=== PATIENT | female | born 1965 | race Caucasian/White ===

== ENCOUNTER 2018-11-03 16:35 | Emergency (ER) | payer OTHER ==
--- NOTE | 2018-11-03 17:21 | EDM.PDOC ---
<Alejandro Thurston - Last Filed: 11/03/18 18:21> ED HPI GENERAL MEDICAL PROBLEM - General Chief Complaint: Gastrointestinal Problem Stated Complaint: CHEST PRESSURE,BURPING,LIGHTHEADED Time Seen by Provider: 11/03/18 17:05 Source of Information: Reports: Patient, Family History Limitations: Reports: No Limitations - History of Present Illness INITIAL COMMENTS - FREE TEXT/NARRATIVE: 53-year-old female with an epigastric and substernal pressure sensation for the past 18-20 hours. She noticed it last night prior to going to bed, several times in the night because difficulty sleeping because of the pressure. It feels more intense if she sits up and leans forward, or take a deep breath. There is no radiation of pain to her back or shoulders. She also feels like she has to "burping a lot". She went for a 2 mile walk today and she felt much better but later the pressure built up to where it made her anxious and then she developed some numbness and tingling in her arms so wanted to be checked. She went into the clinic and they sent her to the emergency room. Now she is currently nauseous but has had no vomiting, no abdominal distention, diarrhea or constipation. She's had 2 C-sections in the past. Denies any dyspnea, cough, cold symptoms or recent illness. Onset: Sudden (Symptoms started rather suddenly last evening) Duration: Hour(s): (About 20 hours) Location: Reports: Chest, Abdomen (Substernal epigastric) Quality: Reports: Pressure Improves with: Reports: Other (Activity seems to make it feel better especially if she is upright and walking) Worsens with: Reports: Other (Sitting position and leaning forward, also a deep breath she feels more pressure) Associated Symptoms: Reports: Chest Pain, Diaphoresis, Malaise. Denies: Cough, Fever/Chills, Shortness of Breath - Related Data Allergies Allergy/AdvReac Type Severity Reaction Status Date / Time amoxicillin Allergy Anxiety Verified 11/03/18 16:53 sulfamethoxazole Allergy Rash Verified 11/03/18 16:53 [From Bactrim] trimethoprim [From Bactrim] Allergy Rash Verified 11/03/18 16:53 Home Meds: Home Meds NK [No Known Home Meds] 11/03/18 [History] Past Medical History [employer] History: Reports: Endocrine/Metabolic History: Reports: Obesity/BMI 30+ Dermatologic History: Reports: Eczema - Infectious Disease History Infectious Disease History: Reports: Chicken Pox - Past Surgical History Head Surgeries/Procedures: Reports: None Endocrine Surgical History: Reports: None Dermatological Surgical History: Reports: None Social & Family History - Tobacco Use Smoking Status *Q: Never Smoker Second Hand Smoke Exposure: No - Caffeine Use Caffeine Use: Reports: Coffee - Recreational Drug Use Recreational Drug Use: No ED ROS GENERAL - Review of Systems Review Of Systems: See Below Constitutional: Reports: Malaise. Denies: Fever, Chills HEENT: Reports: No Symptoms Respiratory: Denies: Shortness of Breath Cardiovascular: Reports: Chest Pain (Substernal pressure) GI/Abdominal: Reports: Abdominal Pain (Epigastric pressure), Nausea : Reports: No Symptoms Musculoskeletal: Reports: No Symptoms Skin: Reports: No Symptoms Neurological: Reports: No Symptoms Psychiatric: Reports: No Symptoms ED EXAM, GENERAL - Physical Exam Exam: See Below Exam Limited By: No Limitations General Appearance: Alert, No Apparent Distress Eye Exam: Bilateral Eye: Normal Inspection (No jaundice) Head: Atraumatic Neck: Non-Tender Respiratory/Chest: No Respiratory Distress, Lungs Clear Cardiovascular: Regular Rate, Rhythm. No: Extra Beats GI/Abdominal: Normal Bowel Sounds, Soft, Tender (Slight discomfort and tenderness to palpation across the upper abdomen but no focal pain, guarding or rebound tenderness) Extremities: Normal Inspection. No: Pedal Edema Neurological: Alert, Oriented Psychiatric: Normal Affect, Normal Mood Skin Exam: Warm, Dry EKG INTERPRETATION Rhythm: NSR Course - Vital Signs Last Recorded V/S: Last Vital Signs Temp 36.4 C 11/03/18 16:57 Pulse 91 11/03/18 17:49 Resp 14 11/03/18 17:49 BP 124/87 11/03/18 17:49 Pulse Ox 96 11/03/18 17:49 - Orders/Labs/Meds Orders: Active Orders 24 hr Category Date Time Status EKG Documentation Completion [RC] ASDIRECTED Care 11/03/18 17:15 Active Famotidine [Pepcid] Med 11/03/18 19:47 Once 40 mg PO ONETIME ONE EKG 12 Lead [EK] Routine Ther 11/03/18 17:14 Ordered Labs: Laboratory Tests 0211/03/18 11/03/18 Range/Units 17:14 17:14 17:14 WBC 6.9 (4.5-11.0) K/uL RBC 4.95 (3.30-5.50) M/uL Hgb 14.9 (12.0-15.0) g/dL Hct 45.0 (36.0-48.0) % MCV 91 (80-98) fL MCH 30 (27-31) pg MCHC 33 (32-36) % Plt Count 297 (150-400) K/uL Neut % (Auto) 65 (36-66) % Lymph % (Auto) 27 (24-44) % [place] % (Auto) 7 H (2-6) % Eos % (Auto) 0 L (2-4) % Baso % (Auto) 0 (0-1) % Sodium 141 (140-148) mmol/L Potassium 3.5 L (3.6-5.2) mmol/L Chloride 103 (100-108) mmol/L Carbon Dioxide 22 (21-32) mmol/L Anion Gap 19.5 H (5.0-14.0) mmol/L BUN 18 (7-18) mg/dL Creatinine 0.9 (0.6-1.0) mg/dL Est Cr Clr Drug Dosing 60.49 mL/min Estimated GFR (MDRD) > 60 (>60) Glucose 101 (74-106) mg/dL Calcium 9.4 (8.5-10.1) mg/dL Total Bilirubin 0.5 (0.2-1.0) mg/dL AST 14 L (15-37) U/L ALT 22 (12-78) U/L Alkaline Phosphatase 62 (46-116) U/L Troponin I < 0.017 (0.000-0.056) ng/mL Total Protein 7.9 (6.4-8.2) g/dL Albumin 4.2 (3.4-5.0) g/dL Globulin 3.7 H (2.3-3.5) g/dL Albumin/Globulin Ratio 1.1 L (1.2-2.2) Lipase 125 (73-393) U/L - Re-Assessments/Exams Free Text/Narrative Re-Assessment/Exam: 11/03/18 17:22 In EKG was done which showed no ST segment changes, it appears normal. A CBC, CMP, lipase and troponin were obtained and the patient will be sent back for a two-view chest x-ray. 11/03/18 18:22 Labs were generally normal, reassuring, troponin 0 and lipase normal. Reexamination revealed persistent epigastric pain and the patient, but that she feels "bloated". Discussed more evaluation with a CT scan versus clear liquids for 1-2 days and Prilosec, the family elected to do a CT which was ordered without contrast abdomen and pelvis. Care turned over to Dr. Mckenna pending results. Departure - Departure Disposition: Home, Self-Care 01 Clinical Impression: Epigastric pain - Discharge Information Instructions: Abdominal Pain, Adult Referrals: PCP,None [Primary Care Provider] - Forms: ED Department Discharge Additional Instructions: Take famotidine as directed. F/U with your provider within the week. Use acetaminophen as needed for pain relief. May use Maalox for added relief as needed. Avoid caffeine, carbonated beverages or NSAID's like ibuprofen, Aleve, and aspirin. Return here if much worse. - My Orders Last 24 Hours: My Active Orders 11/03/18 19:47 Famotidine [Pepcid] 40 mg PO ONETIME ONE - Assessment/Plan Last 24 Hours: My Active Orders 11/03/18 19:47 Famotidine [Pepcid] 40 mg PO ONETIME ONE <Juan Mckenna G - Last Filed: 11/03/18 19:49> Course - Radiology Interpretation Free Text/Narrative:: Neg abd/pelvis CT scan. CT Results Date: 11/03/18 Departure - Departure Time of Disposition: 20:00 Condition: Good - Discharge Information *PRESCRIPTION DRUG MONITORING PROGRAM REVIEWED*: No *COPY OF PRESCRIPTION DRUG MONITORING REPORT IN PATIENT NANCY: No - My Orders Last 24 Hours: My Active Orders 11/03/18 19:47 Famotidine [Pepcid] 40 mg PO ONETIME ONE - Assessment/Plan Last 24 Hours: My Active Orders 11/03/18 19:47 Famotidine [Pepcid] 40 mg PO ONETIME ONE
--- NOTE | 2018-11-03 18:12 | CRLCR ---
INDICATION: dyspnea TECHNIQUE: Chest 2 views. COMPARISON: None. FINDINGS: Cardiovascular and mediastinum: Heart size and vasculature are normal in caliber and appearance. Mediastinum is within normal limits. Lungs and pleural spaces: Lungs are clear. No sign of infiltrate or mass. No sign of pleural effusion. No pneumothorax. Bones and soft tissues: No significant findings. IMPRESSION: Unremarkable chest. Dictated by: Ralph Tay MD @ 11/03/2018 18:11:30 (Electronically Signed)
--- NOTE | 2018-11-03 19:22 | CRLCT ---
INDICATION: persistent epigastric pain, bloating COMPARISON: None. TECHNIQUE: Routine noncontrast axial CT images of the abdomen and pelvis. Sagittal and coronal reformatted series were also generated and reviewed. Total exam DLP 797 mGy-cm. FINDINGS: The lower chest is unremarkable. - The liver, gallbladder, pancreas, spleen and adrenal glands have an unremarkable noncontrast appearance. There is a small cortical defect of the posterior lateral aspect the left kidney, most likely represents sequelae of scarring. No hydronephrosis. No evidence of urolithiasis. - The unopacified major vascular structures demonstrate normal course and caliber. There is no evidence of aneurysm. No suspicious abdominal or pelvic adenopathy. - Limited assessment of the hollow visceral without enteric contrast. No bowel obstruction or ascites. The appendix is normal. No focal inflammatory change or abscess. The urinary bladder is within normal limits. The uterus and adnexa are unremarkable for age. No free fluid in the pelvis. Small fat containing umbilical hernia. - No acute or aggressive osseous findings. IMPRESSION: 1. No acute findings in the abdomen or pelvis. No specific CT abnormality to explain the patient`s reported symptoms. 2. Incidental findings, as above. Dictated by Pancho Brasher MD @ 11/03/2018 7:20:53 PM Please note that all CT scans at this facility use dose modulation, iterative reconstruction, and/or weight-based dosing when appropriate to reduce radiation dose to as low as reasonably achievable. Dictated by: Pancho Brasher MD @ 11/03/2018 19:21:09 (Electronically Signed)
[2018-11-03] MEDS ORDERED: Famotidine 20 MG Tab PO ONE (19:47)
== END 2018-11-03 19:55 | disposition home or self-care (01) ==
LOC: JP.ED 16:35
DX: R10.13 Epigastric pain (principal); R07.2 Precordial pain; Z88.1 Allergy status to other antibiotic agents
CPT/HCPCS: 36415; 71046; 74176; 80053; 83690; 84484; 85025; 93005; 99285; A9270

== ENCOUNTER 2022-10-21 07:17 | Day surgery (SDC) | payer OTHER ==
[2022-10-21] MEDS ORDERED: Midazolam 1 MG/ML 2 ML SDV ONE (07:34)
[2022-10-21] MEDS ORDERED: Propofol 200 MG/20 ML SDV ONE (07:34)
[2022-10-21] MEDS ORDERED: fentaNYL 50 MCG/ML SDV ONE (07:35)
[2022-10-21] MEDS ORDERED: Lactated Ringers 1,000 ML IV SCH (08:00)
== END 2022-10-21 10:15 | disposition home or self-care (01) ==
LOC: JP.SDS 07:17
PROVIDERS: ATTEND Family Medicine
DX: Z12.11 Encounter for screening for malignant neoplasm of colon (principal); D12.3 Benign neoplasm of transverse colon; Z88.0 Allergy status to penicillin; Z88.2 Allergy status to sulfonamides; Z79.899 Other long term (current) drug therapy
CPT/HCPCS: 88305; J2250; J2704; J3010; J7120